=== PATIENT | female | born 1970 | race Caucasian/White ===

== ENCOUNTER 2017-07-26 13:19 | Emergency (ER) | payer OTHER, MEDICAID ==
[~2017-07-26] VITALS: Ht 160 cm; Wt 104.0 kg
[~2017-07-26 13:19] MED LIST: BENZ2TAB PO; CELE200C PO; DIAZ5 PO; ETOD400T PO; GABA300C5 PO; LEVO125T4 PO; MAXZTAB PO; QUET1TAB8 PO; SERO300T PO
[2017-07-26 13:21] VITALS: BP 135/89; PULSE 95; RESP 18; TEMP 98.5; O2SAT 94
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
[2017-07-26] MEDS ORDERED: HYDR-3366 PO (13:58)
[2017-07-26] MEDS ORDERED: ASPI81TA23 PO (13:58)
[2017-07-26] MEDS ORDERED: BENZ0.5T PO (13:58)
[2017-07-26] MEDS ORDERED: ALBUAER3 INH (13:58)
[2017-07-26] MEDS ORDERED: IBUP-232 PO (13:58)
--- NOTE | 2017-07-26 14:31 | RADRPT ---
EXAM DATE/TIME: 07/26/2017 13:44 [facility] COMPARISON: No previous studies available for comparison. INDICATIONS : Right wrist pain post fall. MEDICAL HISTORY : Hypertension. Arthritis. Mumps. Asthma. SURGICAL HISTORY : Tubal ligation. Cholecystectomy. Hysterectomy. Cervical, lumbar & thoracic fusion. ENCOUNTER: Initial ACUITY: 1 day PAIN SCORE: 9/10 LOCATION: Right medial wrist FINDINGS: Three view examination of the right wrist demonstrates no soft tissue swelling, dislocation, or fract ure. The carpal bones are in normal alignment. The joint spaces are maintained. Bony mineralizatio n is normal. CONCLUSION: Unremarkable examination of the right wrist. Reese Barrera MD on July 26, 2017 at 14:29 Board Certified Radiologist. This report was verified electronically.
== END 2017-07-26 14:09 | disposition home or self-care (01) ==
LOC: PHEFT 13:19
DX: S63.501A Unspecified sprain of right wrist, initial encounter (principal); S39.012A Strain of muscle, fascia and tendon of lower back, initial encounter; S66.912A Strain of unspecified muscle, fascia and tendon at wrist and hand level, left hand, initial encounter; J45.909 Unspecified asthma, uncomplicated; F31.9 Bipolar disorder, unspecified; I10 Essential (primary) hypertension; F43.10 Post-traumatic stress disorder, unspecified; Z88.8 Allergy status to other drugs, medicaments and biological substances; W19.XXXA Unspecified fall, initial encounter; Y92.811 Bus as the place of occurrence of the external cause; Z72.0 Tobacco use
CPT/HCPCS: 73110; 99283; L3908